=== PATIENT | female | born 1950 | race Caucasian/White ===

== ENCOUNTER 2020-03-29 10:34 | Outpatient (CLI) | payer MEDICARE ==
[~2020-03-29 10:34] MED LIST: AMLO-150 PO; GABA100C PO; LISI-170 PO; PANT40TA3 PO; Vitamin B12 PO; Vitamin D3 PO; [UNRECOGNIZED DRUG - CODE] PO
== END 2020-03-29 23:59 | disposition home or self-care (01) ==
LOC: CFH 10:34
PROVIDERS: ATTEND Internal Medicine Cardiovascular Disease
DX: I34.0 Nonrheumatic mitral (valve) insufficiency (principal); I10 Essential (primary) hypertension; E78.5 Hyperlipidemia, unspecified
CPT/HCPCS: 93306

== ENCOUNTER 2020-04-21 08:50 | Day surgery (SDC) | payer MEDICARE ==
[~2020-04-21] VITALS: Ht 167.6 cm; Wt 79.5 kg
[2020-04-21] MEDS ORDERED: SODIUM CHLORIDE 0.9% 1,000 ML IV SCH ×2 (09:22→12:14)
[2020-04-21] MEDS ORDERED: ASPIRIN 325 MG TABLET EC PO ONE (09:30)
[2020-04-21] MEDS ORDERED: CLOPIDOGREL 75 MG TABLET PO ONE (09:30)
[2020-04-21 09:31] VITALS: BP 133/79
[2020-04-21] MEDS ORDERED: LEVO25TA4 PO (09:41)
[2020-04-21] MEDS ORDERED: GABA300C PO (09:41)
[2020-04-21] MEDS ORDERED: BUDE10.2 IH (09:41)
[2020-04-21] MEDS ORDERED: GABA600T PO (09:41)
[2020-04-21] MEDS ORDERED: vitamin b12 PO (09:41)
[2020-04-21] MEDS ORDERED: METO25TA91 PO (09:41)
[2020-04-21] MEDS ORDERED: CHOL10003 PO (09:41)
[2020-04-21 09:52] LABS: BASOPHILS # (AUTO) 0.03 x10^3/uL (0-0.1); BASOPHILS % (AUTO) 0 % (0-1); EOSINOPHILS % (AUTO) 1 % (1-7); LYMPHOCYTES # (AUTO) 2.22 x10^3/uL (1-3.4); LYMPHOCYTES % (AUTO) 26 % (22-44); MD NO; MEAN CORPUSCULAR HEMOGLOBIN 29.4 pg (27.0-34.8); MEAN CORPUSCULAR VOLUME 89.1 fL (80-100); MEAN PLATELET VOLUME 7.5 fL (7.4-10.4); MONOCYTES # (AUTO) 0.63 x10^3/uL (0.2-0.8); MONOCYTES % (AUTO) 7 % (2-9); NEUTROPHILS # (AUTO) 5.71 x10^3/uL (1.8-6.8); NEUTROPHILS % (AUTO) 66 % (42-75); PLATELET COUNT 318 x10^3/uL (130-400); RED BLOOD COUNT 4.67 x10^6/uL (3.82-5.3); RED CELL DISTRIBUTION WIDTH 13.8 % (9.6-15.2)
[2020-04-21] MEDS ORDERED: ASPIRIN 325 MG TABLET EC ONE (09:56)
[2020-04-21 10:04] LABS: ANION GAP 8 mmol/L (5-15); CALCIUM 8.9 mg/dL (8.5-10.1); CHLORIDE 106 mmol/L (98-107); CREATININE 0.78 mg/dL (0.55-1.02)
[2020-04-21] MEDS ORDERED: FENTANYL PF 100 MCG/2ML ONE (10:53)
[2020-04-21] MEDS ORDERED: VERAPAMIL 2.5 MG/ML, 2ML ONE ×2 (10:53→11:35)
[2020-04-21] MEDS ORDERED: TICAGRELOR 90 MG TABLET ONE (10:53)
[2020-04-21] MEDS ORDERED: MIDAZOLAM 1 MG/ML, 5ML ONE (10:53)
[2020-04-21] MEDS ORDERED: LIDOCAINE-MPF 1%, 5ML ONE (10:54)
[2020-04-21] MEDS ORDERED: BIVALIRUDIN 250 MG ONE (10:54)
[2020-04-21] MEDS ORDERED: HEPARIN 1,000 UNITS/ML, 10ML ONE (10:54)
== END 2020-04-21 14:40 | disposition home or self-care (01) ==
LOC: CACL 08:50
PROVIDERS: ATTEND Internal Medicine Cardiovascular Disease
DX: I20.9 Angina pectoris, unspecified (principal); I34.1 Nonrheumatic mitral (valve) prolapse; I49.3 Ventricular premature depolarization; I10 Essential (primary) hypertension; K21.9 Gastro-esophageal reflux disease without esophagitis; J45.909 Unspecified asthma, uncomplicated; Z79.1 Long term (current) use of non-steroidal anti-inflammatories (NSAID); Z79.899 Other long term (current) drug therapy
CPT/HCPCS: 36415; 80048; 85025; 93458; 99156; C1769; C1894; J1644; J2250; J3010; Q9967; J0583